=== PATIENT | female | born 1985 | race Caucasian/White ===

== ENCOUNTER 2025-08-06 10:21 | Day surgery (SDC) | payer BC ==
[2025-07-31 14:03] LABS: MEAN PLATELET VOLUME 8.2 FL (7.4-10.4); PRE OP HEMATOCRIT 41.8 % (35.0-45.0); PRE OP HEMOGLOBIN 14.0 g/dL (12.0-16.0); PRE OP PLATELET COUNT 207 X10'3 (140-440); PRE OP WHITE BLOOD COUNT 9.0 10'3 (4.8-10.8); RED CELL DISTRIBUTION WIDTH 13.4 % (11.5-14.5)
--- NOTE | 2025-07-31 14:03 | ELECTROCARDIOGRAPH REPORT ---
[facility] Test Date: 2025-07-31 Test Time: 14:01:40 Pat Name: AGUSTIN MARTÍNEZ Department: [facility]-PRE-OP Patient ID: [id number] Room: Gender: F Pastry Cook: denys : 1985 Requested By: AGUSTIN RECIO Order Number: [id number] Reading MD: Dr. BURT Lechuga Measurements Intervals Dobson Rate: 69 P: 63 MI: 135 QRS: 44 QRSD: 100 T: 63 QT: 389 QTc: 417 Interpretive Statements Sinus rhythm Electronically Signed On 07-31-2025 16:51:[address] BURT Lechuga Please click the below link to view image of tracing.
[2025-07-31 14:24] LABS: CREATININE 0.76 MG/DL (0.40-0.90); PRE OP ALT 32 U/L (30-65); PRE OP ANION GAP 7 (8-16); PRE OP AST 14 U/L (10-37); PRE OP BILIRUB, TOTAL 0.3 MG/DL (0.0-1.0); PRE OP GLUCOSE 87 MG/DL (70-104); PRE OP POTASSIUM 4.0 MMOL/L (3.4-5.1); PRE OP SODIUM 141 MMOL/L (135-145); TOTAL CARBON DIOXIDE 30.4 MMOL/L (24-32); eGFR 84 ML/MIN
[2025-07-31 15:06] LABS: HCG SERUM QL NEGATIVE
[~2025-08-06] VITALS: Ht 172.7 cm; Wt 90.1 kg
[2025-08-06] VITALS (8 sets, daily range): BP systolic 114–127; BP diastolic 70–83; PULSE 66–89; RESP 12–16; TEMP 99.7; O2SAT 97–100
[2025-08-06] MEDS: ceFAZolin 2gm/dext,iso 50mL 50 ML IV ONE (05:30)
[~2025-08-06 10:21] MED LIST: NO HOME MEDS
[2025-08-06] MEDS: ringers solution, lacted 1,000 ML IV SCH (11:37)
[2025-08-06] MEDS ORDERED: LIDOcaine 1% 30ml preserv. free vial ONE (12:02)
[2025-08-06] MEDS ORDERED: BUPIVAcaine 2.5mg/ml inj 50ml vial (contains preservative) ONE (12:03)
[2025-08-06] MEDS ORDERED: methylene blue (5mg/ml) 50mg/10ml ampul IV ONE (12:03)
[2025-08-06] MEDS ORDERED: BUPIVACAINE liposomal/PF 13.3 MG/ML 10mL vial IM ONE ×2 (12:04→12:16)
[2025-08-06] MEDS ORDERED: LIDOcaine 1% (10mg/ml)w/preservative inj. 20ml MDV ONE (12:15)
[2025-08-06] MEDS ORDERED: BUPIVAcaine/PF 2.5mg/ml (0.25%) 10ml vial ONE (12:15)
[2025-08-06] MEDS ORDERED: ondansetron/PF 4mg/2ml inj IV PRN (12:50)
[2025-08-06] MEDS ORDERED: morphine 4 MG/ML inj SYRINge IV PRN (12:50)
[2025-08-06] MEDS ORDERED: acetaminophen 1,000mg/100ml IV 100 ML IV PRN (12:50)
[2025-08-06] MEDS ORDERED: labetalol 20mg/4ml (5mg/ml) syringe IV PRN (12:50)
[2025-08-06] MEDS ORDERED: ringers solution, lacted 1,000 ML IV SCH (12:50)
[2025-08-06] MEDS ORDERED: HYDROmorphone/PF 0.2 MG/ML SYRINGE IV PRN ×2 (12:50)
[2025-08-06] MEDS ORDERED: hydrALAZINE 20mg/ml inj. IV PRN (12:50)
[2025-08-06] MEDS ORDERED: midazolam 1 mg/ML 2ml injection ONE (12:53)
[2025-08-06] MEDS ORDERED: fentaNYL /PF 50mcg/ml 5ml ampule ONE (13:03)
[2025-08-06] MEDS ORDERED: ondansetron/PF 4mg/2ml inj ONE (13:16)
[2025-08-06] MEDS ORDERED: propofol inj 20 ML IV ONE (13:16)
[2025-08-06] MEDS ORDERED: dexamethasone sod phosphate 4mg/ml inj. ONE (13:16)
[2025-08-06] MEDS ORDERED: LIDOcaine 2% (20mg/ml) 5ml vial ONE (13:17)
[2025-08-06] MEDS: methylene blue (5mg/ml) 50mg/10ml ampul IV ONE (13:27)
[2025-08-06] MEDS: LIDOcaine 1% 30ml preserv. free vial IJ ONE (13:28)
[2025-08-06] MEDS: BUPIVAcaine/PF 2.5mg/ml (0.25%) 10ml vial IJ ONE (13:28)
[2025-08-06] MEDS: BUPIVACAINE liposomal/PF 13.3 MG/ML 10mL vial IM ONE (13:28)
--- NOTE | 2025-08-06 14:52 | OPERATIVE REPORT ---
Operative Report Providers to CC CC: AGUSTIN RECIO DO ~ Date of Procedure: Aug 06, 2025 Pre-Operative Diagnosis: Right breast invasive ductal carcinoma Post-Operative Diagnosis SAME as PRE-Op Procedure Performed 1. Right breast wire localized lumpectomy and 2. Right axillary sentinel lymph node biopsy 3. Reading of specimen radiograph Surgeon: Dr. 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 She was seen and evaluated in the office and referred to me by Dr. Hood. We discussed her diagnosis and the surgical options. She decided to move forward breast conservation. Informed consent was obtained. This morning she had a nuclear medicine injection in the right breast at [facility]. In the preoperative holding area she had an IV placed, SCDs to lower extremities and IV antibiotics hanging at the bedside which was administered prior to the cut of surgery. I marked the right breast with my initials and she was seen by the anesthesiologist. She was taken to the OR suite and placed on the table in supine position with the arms extended. General anesthesia was administered with an LMA. The right breast was scanned with the gamma probe and a hot signal was detected in the upper outer quadrant of the areola and at the base of the axilla. The skin was marked my initials. I also scanned the breast in the 11:30 position 3 cm from the nipple with the pintuition probe. The incision was made in the Periareolar fashion with a 15 blade. Dissected through the deep layer with the cutting on the cautery. I guided my dissection with the pintuition probe in a circumferential fashion. Once the lump was completely excised. I oriented with short stitch superior long suture lateral double suture deep. Placed in the Faxitron machine, the trace tracker were identified. The cavity was irrigated hemostasis was achieved with Bovie electrocautery. I turned my attention to the right axillary sentinel lymph node biopsy. I made a proposed incision with a marking pen and injected the area 1% lidocaine solution. I made an incision with a 15 blade dissected through the deep dermal layer with the cutting on the cautery. Placed Long retractors in the cavity and dissected through the axillary fascia. There was a hot count that was noted and the lymph node was also blue. I stabilized it with the tonsil clamp. It was completely excised with the LigaSure. It was removed from the cavity and had a count of 1835. It was placed in formalin. I scanned the axilla again and a 2nd lymph node was identified hot and blue. It was excised in the same fashion. One I scanned at outside of the body had a count of 851. It was also placed in formalin. I re- scanned the right axilla and there was no additional counts. All specimens were placed in formalin separately off the field and sent for permanent evaluation. I irrigated the cavity and hemostasis was achieved with Bovie electrocautery. The fascia was reapproximated with 3-0 Vicryl suture and the deep skin. The skin was closed with Stratafix two 0 suture. I turned my attention back to the breast cavity. Made sure hemostasis was achieved with Bovie electrocautery. The cavity was approximated with 3-0 chris Vicryl suture. The skin was closed with 3-0 Vicryl suture and 2-0 Stratafix. Dermabond was placed on the incisions 0.25% Marcaine mixed with Exparel was injected at both sites. Sterile dressings were applied. A balled fluff to the right axilla and top dressings. A breast binder was placed on the patient. She was taken to recovery in stable condition without complication. All needle sponge counts were correct. Counts repoted as correct: Yes AGUSTIN RECIO DO Aug 06, 2025 14:52
--- NOTE | 2025-08-11 18:53 | PATHOLOGY REPORT ---
[facility] [address] [place] [address] SURGICAL PATHOLOGY REPORT CaseNumber: [id number] Surgeon:Susy Clarke M.D. CLINICAL INFORMATION CLINICAL INFORMATION: Cancer right breast. DIAGNOSIS DIAGNOSIS: A.BREAST, RIGHT, 11:00; LUMPECTOMY - INVASIVE LOBULAR CARCINOMA, MODERATELY DIFFERENTIATED, CECILIA SCORE 6-7. - NEOPLASM MEASURES 1 CM IN GREATEST DIMENSION. - MARGIN CLEAR, CLOSEST ANTERIOR AT 7 MM. DIAGNOSIS: B.SENTINEL NODE, RIGHT AXILLA #1; EXCISION - ONE LYMPH NODE NEGATIVE FOR METASTATIC CARCINOMA (0/1). DIAGNOSIS: C.LYMPH NODE, RIGHT AXILLARY SENTINEL #1; EXCISION - ONE LYMPH NODE NEGATIVE FOR METASTATIC CARCINOMA (0/1). COMMENT NOTE: Case [id number] is reviewed. NOTE: Case [id number] is reviewed. NOTE: Case [id number] is reviewed. MICROSCOPIC DESCRIPTION A. BREAST, RIGHT, 11:00 MICROSCOPIC DESCRIPTION: Seven slides from part A are examined. The grossly- described tumor is an invasive lobular carcinoma which grows in an Marshallese file fashion, tubule (score 3), moderate nuclear atypia (score 2), and low to intermediate mitotic rate (score 1-2); for a Cecilia score of 6-7 or mod erately differentiated. There is a minor in situ (lobular neoplasia) component which extends minimally beyond the confines of the invasive tumor. The neoplasm is 0.7 cm from the closest (anterior) margin. The other margins are remote, greater than 1 cm. B. SENTINEL NODE, RIGHT AXILLA #1 MICROSCOPIC DESCRIPTION: Two H&E stained slides and one immunoperoxidase study slide for AE1/AE3 from part B are examined. Present is a partial fat-replaced lymph node which is negative for metastatic carcinoma by routine light micro scopy. Immunoperoxidase study for AE1/AE3 does not highlight an epithelial population supporting the light microscopic impression. C. LYMPH NODE, RIGHT AXILLARY SENTINEL #1 MICROSCOPIC DESCRIPTION: Two H&E stained slides and one immunoperoxidase study slide for AE1/AE3 from part C are examined. Present is a partially fat-replaced lymph node which is negative for metastatic carcinoma by routine light ken roscopy. Immunoperoxidase study for AE1/AE3 does not highlight an epithelial population supporting the light microscopic impression. (st) GROSS DESCRIPTION A. BREAST, RIGHT, 11:00 GROSS DESCRIPTION: Received in a container of formalin labeled with the patient's name, number, and "right breast lumpectomy" is a 42 g oriented excision of fibrofatty breast tissue which measures 6.5 x 5.5 x 3 cm. There are sutures found marking the superior, lateral, and posterior aspects of the exci chelsea. The superior margin is marked blue, the inferior margin is marked green, the medial margin is marked orange, lateral margin is marked yellow, the anterior margin is marked red, and the posterior margin is marked black. Sectioning reveals a 0.6 x 1.0 x 0.8 cm firm villalobos neoplasm containing foreign material (metallic clip). The tumor is present 0.7 cm from the anterior margin (closest margin). Sections are submitted as follows: A1) Superior margin A2) Inferior margin A3) Medial margin A4) Lateral margin A5-A6) Anterior margin with tumor A7) Posterior margin The time at which the specimen was removed was 1329. The time at which the specimen was placed in formalin was 1339. (mb). B. SENTINEL NODE, RIGHT AXILLA #1 GROSS DESCRIPTION: Received in a container of formalin labeled with the patient's name, number, and "right axillary sentinel lymph node #1" is a 1.4 x 0.8 x 0.8 cm blue stained lymph node candidate. The specimen is bisected and entirely submitted as B1. The time at which the specimen was removed was 1329. The time at which the specimen was placed in formalin was 1339. (meb) C. LYMPH NODE, RIGHT AXILLARY SENTINEL #1 GROSS DESCRIPTION: Received in a container of formalin labeled with the patient's name, number, and "right axillary sentinel lymph node #2" is a 1 x 1 x 0.7 cm blue stained lymph node candidate. The specimen is bisected and entirely submitted as C1. The time at which the specimen was removed was 1329. The time at which the specimen was placed in formalin was 1339. (meb) SYNOPTIC REPORT SYNOPTIC TEXT: Previous breast markers ([id number], Right, 11:30, 5 cm from nipple) ER: 100% WA: 100% Her2: 1+ Ki-67: 15% CK5/6: Negative FISH: Negative/not amplified INVASIVE CARCINOMA OF THE BREAST: Resection Specimen Procedure: Excision (less than total mastectomy) Specimen Laterality: Right Tumor Histologic Type: Invasive lobular carcinoma Histologic Grade ([place] Histologic Score): Glandular (Acinar) / Tubular Differentiation: Score 3 Nuclear Pleomorphism: Score 2 Mitotic Rate: Score 1-2 Overall Grade: Grade 2 (score of 6-7) Tumor Size: 10 Millimeters (mm) Ductal Carcinoma In Situ (DCIS): Not identified Lymphatic and / or Vascular Invasion: Not identified Treatment Effect in the Breast: No known presurgical therapy Margins Margin Status for Invasive Carcinoma: All margins negative for invasive carcinoma Distance from Invasive Carcinoma to Closest Margin: 7 mm Regional Lymph Nodes Regional Lymph Node Status: All regional lymph nodes negative for tumor Total Number of Lymph Nodes Examined (sentinel and non-sentinel): 2 Number of [place] Nodes Examined: 2 pTNM Classification (AJCC 8th Edition) pT Category: pT1b pN Category: pN0 N Suffix: (sn) [facility] 2023 Q2 Release Electronically signed by: Magnus Cano M.D. 08/11/2025 6:10:00 PM
== END 2025-08-06 15:10 | disposition home or self-care (01) ==
LOC: SSTAY O 10:21 → PAS 15:10
PROVIDERS: ATTEND Surgery
DX: C50.411 Malignant neoplasm of upper-outer quadrant of right female breast (principal); I10 Essential (primary) hypertension; E11.9 Type 2 diabetes mellitus without complications; J45.909 Unspecified asthma, uncomplicated; G47.30 Sleep apnea, unspecified; I25.2 Old myocardial infarction; Z98.890 Other specified postprocedural states
CPT/HCPCS: 19301; 36415; 38525; 76098; 80053; 82948; 84703; 85025; 93005; J0666; J1100; J2003; J2250; J2405; J2704; J3010; J3490; J7030; J7120; Q9968; Z7506; Z7508; Z7512; A4215; A4615; A4618; A6253; A6258; A6446; A7000